=== PATIENT | female | born 1965 | race Caucasian/White ===

== ENCOUNTER 2016-08-29 16:19 | Inpatient (IN) ==
[2016-08-29 16:23] VITALS: BMI 29.4
[2016-08-29] MEDS ORDERED: DUONEB NEB STA (16:28)
[2016-08-29] MEDS ORDERED: ALBUTEROL 0.083% NEB NEB STA (16:33)
[2016-08-29] MEDS ORDERED: ROCEPHIN 1 GM in SODIUM CHLORIDE 100 ML IV STA (16:34)
--- NOTE | 2016-08-29 16:40 | ED.PDOC ---
General ED Provider: Dr. AGUSTIN GIRON JR Chief Complaint: Shortness of Air Stated Complaint: woke up with trouble breathing, coughing up thick white foamy sputum. fever and chills[End] 101.4 102 20 65% 101/70 Time Seen by Physician: 16:41 Mode of Arrival: Wheelchair Information Source: Patient Exam Limitations: No limitations Nursing and Triage Documentation Reviewed and Agree: No Review of Systems - Review Of Systems Constitutional: Reports: Fever, Malaise Eyes: Reports: No symptoms Ears, Nose, Mouth, Throat: Reports: No symptoms Respiratory: Reports: Cough, Short of air, Wheezing GI: Reports: No symptoms : Reports: No symptoms Musculoskeletal: Reports: No symptoms Skin: Reports: No symptoms Neurological: Reports: No symptoms Endocrine: Reports: No symptoms Hematologic/Lymphatic: Reports: No symptoms All Other Systems: Other Past Medical History - Past Medical History Endocrine: Reports: None, Hypothyroid Cardiovascular: Reports: None Respiratory: Reports: COPD Hematological: Reports: None Gastrointestinal: Reports: None Genitourinary: Reports: None Neuro/Psych: Reports: None Musculoskeletal: Reports: None Cancer: Reports: None Last Menstrual Period: none - Surgical History General Surgical History: Reports: Hysterectomy, Other (BREAST REDUCTION ), Unknown - Family History Family History: Reports: Unknown - Social History Smoking Status: Current every day smoker Hx Substance Use: No Alcohol Screening: None Physical Exam - Physical Exam Appearance: Ill-appearing Ill-appearing: Moderate Pain Distress: Moderate Eyes: BEBE ENT: Ears normal, Nose normal, Oropharynx normal Neck: Supple Respiratory: Airway patent, Breath sounds diminished (more diminished on right) , Rhonchi, Wheezes Cardiovascular: RRR, Pulses normal, No rub, No murmur GI/: Soft, Nontender, No masses, Bowel sounds normal, No Organomegaly Musculoskeletal: Normal strength, ROM intact, No edema, No calf tenderness Skin: Warm, Dry, Normal color Neurological: Sensation intact, Motor intact, Reflexes intact, Cranial nerves intact, Alert, Oriented Psychiatric: Anxious Interpretation - Radiology Interpretation Radiology Interpretation By: Radiologist Radiology Results: No acute changes Exam Interpreted: CXR (nonacute stable changes of copd and stable ELLIOTT nodule since 2014) - EKG Interpretation Time of EKG #1: 16:40 Rate: Normal Rhythm: Sinus Ectopy: None ST Segment: Other (lateral Q waves without acute changes, change [id number](q in v2 at that time)) Critical Care Note - Critical Care Note Total Time (mins): 0 Course - Course Hematology/Chemistry: 08/29/16 16:30 08/29/16 16:30 Orders, Labs, Meds: Lab Review 08/29/16 08/29/16 08/29/16 16:27 16:30 16:50 WBC 8.27 RBC 4.99 Hgb 15.6 Hct 47.4 H MCV 95.0 MCH 31.3 H MCHC 32.9 RDW Coeff of Yulia 15.3 H Plt Count 211 Immature Gran % (Auto) 0.4 Neut % (Auto) 75.7 Lymph % (Auto) 12.3 [place] % (Auto) 10.5 H Eos % (Auto) 0.6 Baso % (Auto) 0.5 Immature Gran # (Auto) 0.0 Neut # 6.3 Lymph # 1.0 [place] # 0.9 Eos # 0.1 Baso # 0.0 D-Dimer 0.56 Puncture Site Rrad O2 Saturation 64.0 L ABG pH 7.421 ABG pCO2 54.9 H ABG pO2 33.0 L* ABG HCO3 35.7 H ABG Total CO2 37 H ABG Base Excess 11 H Garcia Test + O2 Delivery Device Oxygen Liter Flow FiO2 % 21.0 Sodium 139 Potassium 4.5 Chloride 95 L Carbon Dioxide 35 H Anion Gap 13.5 BUN 10 Creatinine 0.84 Estimated GFR (MDRD) 72.00 BUN/Creatinine Ratio 11.90 Glucose 88 Lactic Acid 6.7 Calcium 9.5 Total Bilirubin 0.61 AST 21 ALT 17 Alkaline Phosphatase 58 Total Creatine Kinase 79 Troponin I < 0.0100 B-Natriuretic Peptide 37 Total Protein 7.7 Albumin 4.0 Globulin 3.7 Albumin/Globulin Ratio 1.08 Procalcitonin < 0.5 Influenza A (Rapid) Influenza B (Rapid) 08/29/16 08/29/16 17:24 17:30 WBC RBC Hgb Hct MCV MCH MCHC RDW Coeff of Yulia Plt Count Immature Gran % (Auto) Neut % (Auto) Lymph % (Auto) [place] % (Auto) Eos % (Auto) Baso % (Auto) Immature Gran # (Auto) Neut # Lymph # [place] # Eos # Baso # D-Dimer Puncture Site Lbrach O2 Saturation 84.0 L ABG pH 7.409 ABG pCO2 54.8 H ABG pO2 50.0 L* ABG HCO3 34.7 H ABG Total CO2 36 H ABG Base Excess 10 H Garcia Test O2 Delivery Device Nc Oxygen Liter Flow 3.00 FiO2 % Sodium Potassium Chloride Carbon Dioxide Anion Gap BUN Creatinine Estimated GFR (MDRD) BUN/Creatinine Ratio Glucose Lactic Acid Calcium Total Bilirubin AST ALT Alkaline Phosphatase Total Creatine Kinase Troponin I B-Natriuretic Peptide Total Protein Albumin Globulin Albumin/Globulin Ratio Procalcitonin Influenza A (Rapid) Negative Influenza B (Rapid) Negative Orders Category Date Time Status ADMIT PATIENT INPATIENT .TO [facility] (MONITORED BED) ADMISSION 08/29/16 18: 52 Active ABG DRAW REQUEST Stat CARDIO 08/29/16 16:28 Completed ABG DRAW REQUEST Stat CARDIO 08/29/16 17:24 Completed EKG-(ED ONLY) Stat CARDIO 08/29/16 16:27 Completed NEBULIZER TREATMENT Stat CARDIO 08/29/16 16:28 Completed NEBULIZER TREATMENT Stat CARDIO 08/29/16 16:33 Completed NEBULIZER TREATMENT Stat CARDIO 08/29/16 19:03 Ordered OXYGEN Routine CARDIO 08/29/16 18:55 Ordered ACTIVITY .Early Mobilization for VTE Prevention CARE 08/29/16 18:52 Active INTAKE & OUTPUT Q8HR CARE 08/29/16 18:52 Active TELEMETRY MONITORING TELE CARE 08/29/16 18:53 Active VITAL SIGNS Q4HR CARE 08/29/16 18:52 Active REGULAR DIET DIETARY 08/29/16 Breakfast Ordered ED APPLY O2 .ONCE EMERGENCY 08/29/16 16:27 Active ED PROPERTY FIELD ADJUSTER APPLIED .ONCE EMERGENCY 08/29/16 16:27 Active ED IV/MEDIPORT/POWERPORT .ONCE EMERGENCY 08/29/16 16:27 Active O2 [ED APPLY O2] .ONCE EMERGENCY 08/29/16 16:42 Active ABG Stat LAB 08/29/16 16:27 Completed ABG Stat LAB 08/29/16 17:24 Completed B-TYPE NATRIURETIC PEPTIDE Stat LAB 08/29/16 16:30 Completed BLOOD CULTURE Stat LAB 08/29/16 16:50 Received CBC W/ AUTO DIFF DAILY@0600 LAB 08/30/16 06:00 Ordered CBC W/ AUTO DIFF DAILY@0600 LAB 08/31/16 06:00 Ordered CBC W/ AUTO DIFF DAILY@0600 LAB 09/01/16 06:00 Ordered CBC W/ AUTO DIFF DAILY@0600 LAB 09/02/16 06:00 Ordered CBC W/ AUTO DIFF DAILY@0600 LAB 09/03/16 06:00 Ordered CBC W/ AUTO DIFF DAILY@0600 LAB 09/04/16 06:00 Ordered CBC W/ AUTO DIFF DAILY@0600 LAB 09/05/16 06:00 Ordered CBC W/ AUTO DIFF DAILY@0600 LAB 09/06/16 06:00 Ordered CBC W/ AUTO DIFF DAILY@0600 LAB 09/07/16 06:00 Ordered CBC W/ AUTO DIFF DAILY@0600 LAB 09/08/16 06:00 Ordered CBC W/ AUTO DIFF DAILY@0600 LAB 09/09/16 06:00 Ordered CBC W/ AUTO DIFF DAILY@0600 LAB 09/10/16 06:00 Ordered CBC W/ AUTO DIFF DAILY@0600 LAB 09/11/16 06:00 Ordered CBC W/ AUTO DIFF DAILY@0600 LAB 09/12/16 06:00 Ordered CBC W/ AUTO DIFF DAILY@0600 LAB 09/13/16 06:00 Ordered CBC W/ AUTO DIFF DAILY@0600 LAB 09/14/16 06:00 Ordered CBC W/ AUTO DIFF DAILY@0600 LAB 09/15/16 06:00 Ordered CBC W/ AUTO DIFF DAILY@0600 LAB 09/16/16 06:00 Ordered CBC W/ AUTO DIFF DAILY@0600 LAB 09/17/16 06:00 Ordered CBC W/ AUTO DIFF DAILY@0600 LAB 09/18/16 06:00 Ordered CBC W/ AUTO DIFF Stat LAB 08/29/16 16:30 Completed COMPREHENSIVE METABOLIC PANEL DAILY@0600 LAB 08/30/16 06:00 Ordered COMPREHENSIVE METABOLIC PANEL DAILY@0600 LAB 08/31/16 06:00 Ordered COMPREHENSIVE METABOLIC PANEL DAILY@0600 LAB 09/01/16 06:00 Ordered COMPREHENSIVE METABOLIC PANEL DAILY@0600 LAB 09/02/16 06:00 Ordered COMPREHENSIVE METABOLIC PANEL DAILY@0600 LAB 09/03/16 06:00 Ordered COMPREHENSIVE METABOLIC PANEL DAILY@0600 LAB 09/04/16 06:00 Ordered COMPREHENSIVE METABOLIC PANEL DAILY@0600 LAB 09/05/16 06:00 Ordered COMPREHENSIVE METABOLIC PANEL DAILY@0600 LAB 09/06/16 06:00 Ordered COMPREHENSIVE METABOLIC PANEL DAILY@0600 LAB 09/07/16 06:00 Ordered COMPREHENSIVE METABOLIC PANEL DAILY@0600 LAB 09/08/16 06:00 Ordered COMPREHENSIVE METABOLIC PANEL DAILY@0600 LAB 09/09/16 06:00 Ordered COMPREHENSIVE METABOLIC PANEL DAILY@0600 LAB 09/10/16 06:00 Ordered COMPREHENSIVE METABOLIC PANEL DAILY@0600 LAB 09/11/16 06:00 Ordered COMPREHENSIVE METABOLIC PANEL DAILY@0600 LAB 09/12/16 06:00 Ordered COMPREHENSIVE METABOLIC PANEL DAILY@0600 LAB 09/13/16 06:00 Ordered COMPREHENSIVE METABOLIC PANEL DAILY@0600 LAB 09/14/16 06:00 Ordered COMPREHENSIVE METABOLIC PANEL DAILY@0600 LAB 09/15/16 06:00 Ordered COMPREHENSIVE METABOLIC PANEL DAILY@0600 LAB 09/16/16 06:00 Ordered COMPREHENSIVE METABOLIC PANEL DAILY@0600 LAB 09/17/16 06:00 Ordered COMPREHENSIVE METABOLIC PANEL DAILY@0600 LAB 09/18/16 06:00 Ordered COMPREHENSIVE METABOLIC PANEL Stat LAB 08/29/16 16:30 Completed CREATINE KINASE Q8H LAB 08/30/16 01:00 Ordered CREATINE KINASE Q8H LAB 08/30/16 09:00 Ordered CREATINE KINASE Stat LAB 08/29/16 16:30 Completed D-DIMER Stat LAB 08/29/16 16:30 Completed FLU A & B RAPID TEST [RAPID FLU A/B] Stat LAB 08/29/16 17:30 Completed LACTIC ACID Stat LAB 08/29/16 16:50 Completed MOLECULAR GROUP A STREP Stat LAB 08/29/16 17:30 Results PROCALCITONIN Stat LAB 08/29/16 16:30 Completed SPUTUM CULTURE Stat LAB 08/29/16 19:05 Uncollected STREP SCREEN Stat LAB 08/29/16 17:30 Results TROPONIN I Q8H LAB 08/30/16 01:00 Ordered TROPONIN I Q8H LAB 08/30/16 09:00 Ordered TROPONIN I Stat LAB 08/29/16 16:30 Completed 0.9 % Sodium Chloride [Saline Flush] MEDS 08/29/16 16:27 Active 1 syr IVF PRN PRN Acetaminophen [Tylenol] MEDS 08/29/16 17:27 Discontinued 650 mg PO ONCE STA Acetaminophen [Tylenol] MEDS 08/29/16 18:52 Ordered 650 mg PO Q4H PRN Albuterol Sulfate 0.083% Neb [Albuterol 0.083% Neb] MEDS 08/29/16 16:33 Discontinued 1 vial NEB ONCE STA Ceftriaxone Sodium [Rocephin] MEDS 08/29/16 16:41 Discontinued 1 gm .ROUTE .STK-MED ONE Ceftriaxone Sodium [Rocephin] 1 gm MEDS 08/29/16 16:34 Discontinued 0.9 % Sodium Chloride [Sodium Chloride] 100 ml IV ONCE Ceftriaxone Sodium [Rocephin] 1 gm MEDS 08/30/16 09:00 Ordered 0.9 % Sodium Chloride [Sodium Chloride] 50 ml IV DAILY Hydrocodone/Chlorphen Polis [Tussionex] MEDS 08/29/16 17:35 Discontinued 5 ml PO ONCE STA Ipratropium/Albuterol Neb [Duoneb] MEDS 08/29/16 16:28 Discontinued 1 vial NEB ONCE STA Ipratropium/Albuterol Neb [Duoneb] MEDS 08/29/16 22:00 Ordered 1 vial NEB RTQ4H Levaquin MEDS 08/30/16 09:00 Ordered 500 mg PO DAILY Methylprednisolone Sod Succ/Pf [Solu-Medrol 125 mg] MEDS 08/29/16 17:56 Discontinued 125 mg IVP ONCE STA Methylprednisolone Sod Succ/Pf [Solu-Medrol 125 mg] MEDS 08/29/16 21:00 Ordered 125 mg IVP Q8HR RESUSCITATION STATUS Routine OTHERS 08/29/16 18:52 Ordered CHEST, 1V AP ONLY Stat RADS 08/29/16 16:[address] CHEST W/O CONTRAST Stat RADS 08/29/16 18:07 Completed Medications Generic Name Dose Route Start Last Admin Trade Name Freq PRN Reason Stop Dose Admin Acetaminophen 650 mg 08/29/16 18:52 Tylenol PO Q4H PRN Mild Pain Albuterol/Ipratropium 1 vial 08/29/16 22:00 Duoneb NEB RTQ4H YOBANI Guaifenesin/Codeine Phosphate 10 ml 08/29/16 19:08 Robitussin Ac Syrup PO Q4H PRN Cough Ceftriaxone Sodium 1 gm/ 50 mls @ 75 mls/hr 08/30/16 09:00 Sodium Chloride IV DAILY YOBANI Methylprednisolone Sodium Succinate 125 mg 08/29/16 21:00 Solu-Medrol 125 Mg IVP Q8HR YOBANI Nicotine 1 patch 08/30/16 09:00 Nicoderm 21 Mg TD DAILY YOBANI Non-Formulary Medication 500 mg 08/30/16 09:00 Levaquin PO DAILY YOBANI Sodium Chloride 1 syr 08/29/16 16:27 08/29/16 18:06 Saline Flush IVF 1 syr PRN PRN Administration To flush IV Discontinued Medications Generic Name Dose Route Start Last Admin Trade Name [place] PRN Reason Stop Dose Admin Acetaminophen 650 mg 08/29/16 17:27 08/29/16 17:35 Tylenol PO 08/29/16 17:28 650 mg ONCE STA Administration Albuterol Sulfate 1 vial 08/29/16 16:33 08/29/16 16:53 Albuterol 0.083% [facility] 08/29/16 16:34 1 vial ONCE STA Administration Albuterol/Ipratropium 1 vial 08/29/16 16:28 08/29/16 16:49 Duoneb NEB 08/29/16 16:29 1 vial ONCE STA Administration Chlorphenir/Hydrocodone Polistirex 5 ml 08/29/16 17:35 08/29/16 18:58 Tussionex PO 08/29/16 17:36 Not Given ONCE STA Ceftriaxone Sodium 1 gm/ 100 mls @ 100 mls/hr 08/29/16 16:34 08/29/16 16:51 Sodium Chloride IV 08/29/16 17:33 100 mls/hr ONCE STA Administration Methylprednisolone Sodium Succinate 125 mg 08/29/16 17:56 08/29/16 18:06 Solu-Medrol 125 Mg IVP 08/29/16 17:57 125 mg ONCE STA Administration Nicotine 1 patch 08/29/16 19:19 Nicoderm 21 Mg TD 08/29/16 19:20 ONCE STA Vital Signs: Temp Pulse Resp BP Pulse Ox 08/29/16 18:54 99.8 F H 93 H 20 94/60 88 L 08/29/16 16:19 101.4 F H 102 H 20 101/70 65 L Departure - Departure Time of Disposition: 19:21 Disposition: ADMITTED INPATIENT Discharge Problem: COPD exacerbation Condition: Fair Pt referred to PMD for follow-up: Yes Allergies/Adverse Reactions: Allergies No Known Allergies Allergy (Verified 08/29/16 16:51)
[2016-08-29] MEDS ORDERED: ROCEPHIN ONE (16:41)
[2016-08-29 16:42] LABS: BASOPHILS % (AUTO) 0.5 % (0.0-3.0); EOSINOPHILS # (AUTO) 0.1 K/ul (0.0-0.7); EOSINOPHILS % (AUTO) 0.6 % (0.0-7.0); HEMATOCRIT 47.4 % (37.0-47.0); HEMOGLOBIN 15.6 g/dl (12.0-16.0); IMMATURE GRANULOCYTE % (AUTO) 0.4 % (0.0-5.0); LYMPHOCYTES % (AUTO) 12.3 (10.0-50.0); MEAN CORPUSCULAR HEMOGLOBIN 31.3 pg (27.0-31.0); MEAN CORPUSCULAR HGB CONC 32.9 (31.8-35.4); MONOCYTES # (AUTO) 0.9 K/uL (0.4-2.0); MONOCYTES % (AUTO) 10.5 (0-10); NEUTROPHILS # (AUTO) 6.3 K/ul (2.0-6.9); NEUTROPHILS % (AUTO) 75.7; PLATELET COUNT 211 10^3/uL (140-440); RED BLOOD COUNT 4.99 10^6/ul (4.20-5.40); WHITE BLOOD COUNT 8.27 K/ul (4.6-10.2)
--- NOTE | 2016-08-29 16:56 | DI ---
EXAM: Single frontal view of the chest HISTORY: Chest pain. COMPARISON: Chest x-ray 03/17/[address] chest 11/12/2014 FINDINGS: Cardiomediastinal silhouette is unchanged with atherosclerotic disease. There is right ap ical stable lucency consistent with apical bleb with scattered emphysematous disease present. Calci fied nodule in the left upper midlung is unchanged from prior CT. There is no acute consolidation. Right-sided chronic rib fractures are unchanged. IMPRESSION: 1. No acute cardiopulmonary process or consolidation. 2. Stable emphysematous disease most pronounced in the right lung apex with unchanged calcified lef t upper lobe pulmonary nodule stable since 2014.
[2016-08-29 16:58] LABS: ABG BASE EXCESS 11 (-2.0-2.0); ABG HCO3 35.7 (22.0-26.0); ABG PCO2 54.9 mmHg (35-45); ABG PH 7.421 (7.35-7.45); ABG TCO2 37 (22.0-28.0)
[2016-08-29 17:07] LABS: ALANINE AMINOTRANSFERASE 17 U/L (12-78); ALBUMIN/GLOBULIN RATIO 1.08; ALKALINE PHOSPHATASE 58 U/L (42-98); ANION GAP 13.5; ASPARTATE AMINO TRANSFERASE 21 U/L (15-37); BILIRUBIN,TOTAL 0.61 mg/dL (0.00-1.20); BLOOD UREA NITROGEN 10 mg/dL (7-18); CALCIUM 9.5 mg/dL (8.2-10.2); CARBON DIOXIDE 35 mmol/L (21-32); CHLORIDE 95 mmol/L (98-107); CREATINE KINASE 79 U/L; CREATININE 0.84 mg/dL (0.60-1.30); GLUCOSE 88 mg/dL (70-110); POTASSIUM 4.5 mmol/L (3.5-5.10); SODIUM 139 mmol/L (136-145); TOTAL PROTEIN 7.7 g/dL (6.4-8.2)
[2016-08-29] MEDS ORDERED: TYLENOL PO STA (17:27)
[2016-08-29] MEDS ORDERED: TUSSIONEX PO STA (17:35)
[2016-08-29 17:56] LABS: FLU INTERNAL QC INTERNAL QC VALID; RAPID FLU A NEGATIVE (NEGATIVE); RAPID FLU B NEGATIVE (NEGATIVE)
[2016-08-29] MEDS ORDERED: SOLU-MEDROL 125 MG IVP STA (17:56)
[2016-08-29 18:05] LABS: ABG PCO2 54.8 mmHg (35-45); ABG PH 7.409 (7.35-7.45)
[2016-08-29 18:06] LABS: ABG BASE EXCESS 10 (-2.0-2.0); ABG HCO3 34.7 (22.0-26.0); ABG TCO2 36 (22.0-28.0)
--- NOTE | 2016-08-29 18:46 | CT ---
EXAM: CT chest without contrast. HISTORY: Hypoxia. Wheezing. Fever. COMPARISON: Chest radiograph earlier the same day. Chest CT 11/12/2014. TECHNIQUE: Multiple axial images of the chest were obtained without intravenous contrast. Images w ere reformatted in the sagittal and coronal planes. FINDINGS: Nodule extends off the inferior left thyroid lobe measuring 1.8 x 1.9 cm on axial image 1 5. Evaluation for lymphadenopathy is limited due to lack of intravenous contrast. Calcified medias tinal and hilar lymph nodes are present. Heart size is normal. There is a small amount of pericard ial fluid. Atherosclerotic calcifications present. Emphysematous changes in the lung apices are greater on the right with stable nodular densities in t he left upper lobe on axial image 13 and right upper lobe on axial images 21, 22, 26 and 37. Coarse calcification along the left fissure on axial image 38 is stable. Tiny right perifissural nodule o n axial 42 is also stable. No focal consolidation, pleural effusion or pneumothorax identified. Limited images of the upper abdomen demonstrate stable posterior right hepatic lobe and left renal c ysts. Old right-sided rib fractures are present. IMPRESSION: 1. No acute cardiopulmonary process. 2. Stable emphysema with apical scarring. 3. Evidence of prior granulomatous disease.
[2016-08-29] MEDS ORDERED: TYLENOL PO PRN (18:52)
[2016-08-29] MEDS ORDERED: ROBITUSSIN AC SYRUP PO PRN (19:08)
[2016-08-29] MEDS ORDERED: NICODERM 21 MG TD STA (19:19)
[2016-08-29] MEDS: SOLU-MEDROL 125 MG IVP SCH (20:33)
[2016-08-29] MEDS: DUONEB NEB SCH (22:40)
[2016-08-30 01:16] LABS: ALBUMIN 3.5 g/dL (3.4-5.0); ALBUMIN/GLOBULIN RATIO 0.97; ANION GAP 13.3; BILIRUBIN,TOTAL 0.38 mg/dL (0.00-1.20); BUN/CREATININE RATIO 17.44; CALCIUM 9.2 mg/dL (8.2-10.2); CREATININE 0.86 mg/dL (0.60-1.30); POTASSIUM 4.3 mmol/L (3.5-5.10); TOTAL PROTEIN 7.1 g/dL (6.4-8.2)
[2016-08-30 01:25] LABS: BASOPHILS % (AUTO) 0.3 % (0.0-3.0); HEMATOCRIT 45.8 % (37.0-47.0); HEMOGLOBIN 14.8 g/dl (12.0-16.0); IMMATURE GRANULOCYTE % (AUTO) 0.6 % (0.0-5.0); LYMPHOCYTES # (AUTO) 0.4 K/uL (0.60-3.4); MEAN CORPUSCULAR HGB CONC 32.3 (31.8-35.4); MEAN CORPUSCULAR VOLUME 95.8 fl (81.0-99.0); MONOCYTES # (AUTO) 0.1 K/uL (0.4-2.0); MONOCYTES % (AUTO) 2.1 (0-10); NEUTROPHILS # (AUTO) 5.7 K/ul (2.0-6.9); PLATELET COUNT 200 10^3/uL (140-440); RED BLOOD COUNT 4.78 10^6/ul (4.20-5.40); WHITE BLOOD COUNT 6.33 K/ul (4.6-10.2)
[2016-08-30 01:28] LABS: CREATINE KINASE 63 U/L
[2016-08-30] MEDS: DUONEB NEB SCH ×6 (01:51→21:40)
[2016-08-30] MEDS: SOLU-MEDROL 125 MG IVP SCH ×3 (05:35→20:46)
[2016-08-30] MEDS ORDERED: LEVAQUIN 500 MG PO SCH (09:00)
[2016-08-30] MEDS: ROCEPHIN 1 GM in SODIUM CHLORIDE 100 ML IV SCH (09:09)
[2016-08-30] MEDS: LEVAQUIN PO SCH (09:09)
[2016-08-30] MEDS: NICODERM 21 MG TD SCH (09:10)
[2016-08-30 09:45] LABS: CREATINE KINASE 58 U/L
--- NOTE | 2016-08-30 13:33 | PN ---
DATE OF SERVICE: 08/30/16 SUBJECTIVE: The patient is sitting in the bed and not in any distress, still has cough and congestion and some shortness of breath. Mucosa dry. Tearful says that she wants to quit smoking. REVIEW OF SYSTEMS: CONSTITUTIONAL: No fever, no chills. HEENT: Normal. ENDOCRINE: No weight gain, no weight loss. CVS: No angina symptoms. No CHF symptoms. No palpitations. No atypical chest pain for CAD. No shortness of breath. No PND, no orthopnea. RESPIRATORY: No cough, no hemoptysis. GI: No nausea, no vomiting. No abdominal pain. : No hematuria. No polyuria. MUSCULOSKELETAL:. No joint swelling. PSYCHIATRIC: Not anxious. No depression. No suicidal thoughts. No homicidal thoughts. SKIN: Intact. No rash. PHYSICAL EXAMINATION: V/S: Blood pressure 94/60, respiratory rate 20, heart rate 93 and temperature 99.8. HEENT: Normocephalic, atraumatic. Ears, eyes, nose and throat normal. Mucosa dry. NECK: Supple. No JVD, no carotid bruit. No lymphadenopathy. LUNGS: Decreased with basilar crackles with expiratory wheeze. Clear to auscultation. No rales or rhonchi. HEART: S1, S2 normal. No S3. No murmur, gallop or regurgitation. ABDOMEN: Soft, nontender. Bowel sounds active. No rigidity. No rebound or guarding. No CVA tenderness. EXTREMITIES: No clubbing, cyanosis or pedal edema. MUSCULOSKELETAL: No joint swelling. NEUROLOGIC: Awake, alert, oriented times three. No focal deficit. LYMPHATIC: No lymph nodes palpable. SKIN: Intact. LABS: Sodium 139, potassium 4.3, chloride 96, bicarb 34, BUN 15, creatinine 0.86, WBC 6.33, hgb 14.5, hct 45.8 and plt count 200. ASSESSMENT: 1. COPD exacerbation secondary to the acute bronchitis 2. Hypoxemic 3. Respiratory failure 4. Continued nicotine use PLAN: 1. Continue Rocephin 2. Levaquin 3. Will add the Lovenox for the DVT prophylaxis 4. Solu-Medrol 125mg Q 8 hours 5. Duo Nebs Will follow the patient in daily rounds. TIME SPENT: More than 30 minutes MTDD
--- NOTE | 2016-08-30 14:56 | HP ---
DATE OF SERVICE: 08/29/16 CHIEF COMPLAINT: Shortness of breath. HISTORY OF PRESENT ILLNESS: This is a 51-year-old female who was recently at the [facility] for COPD exacerbation and bronchitis. She was put on antibiotics and sent home. The patient went home, was doing well for two days then started smoking. Since yesterday, she is coughing with congestion, getting more green phlegm and short of breath. When she came to the emergency room she was hardly breathing and seen by Dr. Mendez. Saturation was 65 on room air, temperature 101.4, pulse rate 102. ABG's were done which showed pH 7.41, pc02 54.9, p02 33. CT of the chest was done which did not show any acute findings. At that time, the patient is admitted to the hospital D. dimer was negative. BNP REVIEW OF SYSTEMS: CONSTITUTIONAL: No fever, no chills. HEENT: Normal. ENDOCRINE: No weight gain; no weight loss. CVS: No chest pain. No PND, no orthopnea. No shortness of breath. RESPIRATORY: Cough and congestion. No hemoptysis. GI: No nausea, no vomiting. No abdominal pain. No melena. : No hematuria. No polyuria. MUSCULOSKELETAL: No joint swelling. PSYCHIATRIC: Not anxious. No depression. No suicidal thoughts. No homicidal thoughts. SKIN: Dry. PAST MEDICAL HISTORY: 1. History of hypothyroidism 2. COPD PAST SURGICAL HISTORY: 1. S/P hysterectomy date unknown 2. S/P breast reduction date unknown PERSONAL HISTORY: The patient does smoke. No alcohol and no drugs. FAMILY HISTORY: Significant for diabetes mellitus, ovarian cancer, atrial fibrillation. MEDICATIONS: (HOME) 1. Levaquin 2. Prednisone 3. Albuterol ALLERGIES: NKDA LABS: Sodium 139, potassium 4.5, chloride 95, bicarb 35, BUN 10, creatinine 0.84, BNP 37. First set of cardiac enzymes are negative. D.dimer 0.56. White count 8.27, hemoglobin 15.6, hematocrit 47.4, platelet count 211. Serology negative. PHYSICAL EXAMINATION: V/S: Temperature 101.4, pulse 102, respiratory rate 20, oxy saturation 65% HEENT: Atraumatic, normocephalic. No scleral icterus. Mucosa dry. Pallor positive. NECK: Supple. No JVD, no bruit. No lymphadenopathy. No thyromegaly. HEART: S1, S2 normal. No murmur. No cyanosis or clubbing. No ascites. LUNGS: Decreased entry with basilar crackles, expiratory wheeze. ABDOMEN: Soft, nontender. Bowel sounds are active. No CVA tenderness. No rigidity or guarding. EXTREMITIES: No cyanosis, clubbing or pedal edema. MUSCULOSKELETAL: Normal joints, no swelling. NEUROLOGIC: The patient is awake, alert, oriented times three. SKIN: Intact; no open lesions. LYMPHATIC: No lymph nodes palpable. ASSESSMENT: 1. ACUTE RESPIRATORY FAILURE 2. HYPOXEMIC 3. RESPIRATORY FAILURE 4. COPD EXACERBATION SECONDARY TO BRONCHITIS 5. FEVER RULE OUT FLU 6. NICOTINE USE PLAN: 1. Admit the patient to the regular floor 2. CBC, CMP today and daily 3. Cardiac enzymes and troponin 4. Rocephin 1 gm daily 5. Solu-Medrol 125 mg q.8hr 6. Duonebs q.8hr 7. Levaquin. 8. Daily I & O's. 9. Follow with the patient in daily rounds. 10. Counseling for smoking done TIME SPENT: More than 65 minutes today MTDD
[2016-08-30] MEDS: LOVENOX SUBCUT SCH (15:28)
[2016-08-31] MEDS: DUONEB NEB SCH ×6 (01:24→22:40)
[2016-08-31] MEDS: SOLU-MEDROL 125 MG IVP SCH ×3 (05:31→20:09)
[2016-08-31] MEDS: LEVAQUIN PO SCH (05:32)
[2016-08-31 06:09] LABS: BASOPHILS % (AUTO) 0.1 % (0.0-3.0); HEMATOCRIT 45.1 % (37.0-47.0); HEMOGLOBIN 14.7 g/dl (12.0-16.0); IMMATURE GRANULOCYTE % (AUTO) 0.7 % (0.0-5.0); LYMPHOCYTES # (AUTO) 0.8 K/uL (0.60-3.4); LYMPHOCYTES % (AUTO) 7.4 (10.0-50.0); MEAN CORPUSCULAR HEMOGLOBIN 30.8 pg (27.0-31.0); MEAN CORPUSCULAR HGB CONC 32.6 (31.8-35.4); MEAN CORPUSCULAR VOLUME 94.5 fl (81.0-99.0); MONOCYTES # (AUTO) 0.7 K/uL (0.4-2.0); MONOCYTES % (AUTO) 6.5 (0-10); NEUTROPHILS # (AUTO) 9.5 K/ul (2.0-6.9); NEUTROPHILS % (AUTO) 85.3; PLATELET COUNT 212 10^3/uL (140-440); RED BLOOD COUNT 4.77 10^6/ul (4.20-5.40); WHITE BLOOD COUNT 11.15 K/ul (4.6-10.2)
[2016-08-31 06:46] LABS: ALBUMIN 3.4 g/dL (3.4-5.0); ALBUMIN/GLOBULIN RATIO 0.97; ANION GAP 12.3; BILIRUBIN,TOTAL 0.2 mg/dL (0.00-1.20); BUN/CREATININE RATIO 24.13; CALCIUM 9.6 mg/dL (8.2-10.2); CREATININE 0.87 mg/dL (0.60-1.30); POTASSIUM 4.3 mmol/L (3.5-5.10); TOTAL PROTEIN 6.9 g/dL (6.4-8.2)
[2016-08-31] MEDS: NICODERM 21 MG TD SCH (08:50)
[2016-08-31] MEDS: LOVENOX SUBCUT SCH (08:50)
[2016-08-31] MEDS: ROCEPHIN 1 GM in SODIUM CHLORIDE 100 ML IV SCH (08:50)
[2016-09-01] MEDS: DUONEB NEB SCH ×6 (01:25→22:50)
[2016-09-01] MEDS: LEVAQUIN PO SCH (05:40)
[2016-09-01] MEDS: SOLU-MEDROL 125 MG IVP SCH (05:41)
[2016-09-01 05:45] LABS: BASOPHILS % (AUTO) 0.1 % (0.0-3.0); HEMATOCRIT 43.3 % (37.0-47.0); HEMOGLOBIN 14.1 g/dl (12.0-16.0); IMMATURE GRANULOCYTE % (AUTO) 0.9 % (0.0-5.0); LYMPHOCYTES % (AUTO) 6.8 (10.0-50.0); MEAN CORPUSCULAR HEMOGLOBIN 30.7 pg (27.0-31.0); MEAN CORPUSCULAR HGB CONC 32.6 (31.8-35.4); MEAN CORPUSCULAR VOLUME 94.3 fl (81.0-99.0); MONOCYTES # (AUTO) 0.7 K/uL (0.4-2.0); MONOCYTES % (AUTO) 4.4 (0-10); NEUTROPHILS # (AUTO) 13.3 K/ul (2.0-6.9); NEUTROPHILS % (AUTO) 87.8; PLATELET COUNT 225 10^3/uL (140-440); RED BLOOD COUNT 4.59 10^6/ul (4.20-5.40); WHITE BLOOD COUNT 15.09 K/ul (4.6-10.2)
[2016-09-01 06:06] LABS: ALBUMIN 3.2 g/dL (3.4-5.0); ALBUMIN/GLOBULIN RATIO 1.03; ANION GAP 12.4; BILIRUBIN,TOTAL 0.2 mg/dL (0.00-1.20); BUN/CREATININE RATIO 24.39; CALCIUM 9.5 mg/dL (8.2-10.2); CREATININE 0.82 mg/dL (0.60-1.30); POTASSIUM 4.4 mmol/L (3.5-5.10); TOTAL PROTEIN 6.3 g/dL (6.4-8.2)
[2016-09-01] MEDS ORDERED: MEDROL DOSEPAK PO SCH ×2 (08:30→09:00)
[2016-09-01] MEDS: ROCEPHIN 1 GM in SODIUM CHLORIDE 100 ML IV SCH (08:49)
[2016-09-01] MEDS: LOVENOX SUBCUT SCH (08:49)
[2016-09-01] MEDS: NICODERM 21 MG TD SCH (08:50)
[2016-09-01] MEDS: MEDROL DOSEPAK PO SCH ×3 (12:22→20:58)
--- NOTE | 2016-09-01 13:59 | DI ---
Examination: Two radiographic images of the chest. Comparison: 08/29/2016. Reason for study: Follow-up. FINDINGS: Similar appearing nodular density in the left upper lobe. There is flattening of the hem idiaphragms not significantly changed from the prior exam. A diffuse emphysematous disease is noted with bullous changes in the right apex. Impression: 1. No acute cardiopulmonary findings. 2. Similar appearing pulmonary nodule and apical hypodensity consistent with bullous disease. 3. Chronic obstructive pulmonary disease.
--- NOTE | 2016-09-01 14:03 | PCM.PROG ---
Attending Provider: ATTENDING PROVIDER: Dr. NADIA GONSALES DATE OF SERVICE: 09/01/16 SUBJECTIVE: This 51 year old WHITE/ F was hospitalized 08/29/16. The patient was seen and evaluated today. She is feeling better but still gets easily short of breath. Saturations 83 to 85% on room air. The patient is explained in detail about the COPD and the need for oxygen at this time. The patient was upset. I encouraged her that she needs to quit smoking. I offered help to quit and she finally agreed that she is not going to smoke for the rest of her life. She is willing to use oxygen at this time. REVIEW OF SYSTEMS: CONSTITUTIONAL: No fever, no chills. ENDOCRINE: No weight loss or weight gain. HEENT: No sinus drainage, no sore throat. CVS: No angina symptoms. No CHF symptoms. No palpitations. No atypical chest pain for CAD. No shortness of breath. RESPIRATORY: No cough, no hemoptysis. GI: No melena. No abdominal pain. No nausea, no vomiting. : No hematuria. No polyuria. SKIN: No rash. No wounds. MUSCULOSKELETAL: No pain. 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 No headache. No double vision. PSYCHIATRIC: Not anxious; no depression. No suicidal thoughts. No homicidal thoughts. PHYSICAL EXAMINATION: GENERAL: Lying in bed in no distress. VITAL SIGNS: Temperature 98.6 F, Pulse 74, Respiratory Rate 18, BP 92/66, Pulse Ox 96% HEENT: Normocephalic, atraumatic. Mucosa is dry, pallor positive. NECK: No JVP, no carotid bruit. No lymphadenopathy. CARDIAC: S1, S2, no S3. No murmur, gallop or regurgitation. LUNGS: Faint crackles. No wheezing. ABDOMEN: Soft, non-tender. Bowel sounds active. No rigidity, guarding or CVA tenderness. EXTREMITIES: No clubbing, cyanosis or edema. NEUROLOGIC: Awake, alert and oriented x3. LYMPHATIC: No palpable lymph nodes SKIN: Not dry. Intact. MUSCULOSKELETAL: No joint swelling. LAB REVIEW: 09/01/16 05:20 09/01/16 05:20 09/01/16 05:20: WBC 15.09 H, RBC 4.59, Hgb 14.1, Hct 43.3, MCV 94.3, MCH 30.7, MCHC 32.6, RDW Coeff of Yulia 14.7, Plt Count 225, Immature Gran % (Auto) 0.9, Neut % (Auto) 87.8, Lymph % (Auto) 6.8 L, [place] % (Auto) 4.4, Eos % (Auto) 0.0, Baso % (Auto) 0.1, Immature Gran # (Auto) 0.1, Neut # 13.3 H, Lymph # 1.0, [place] # 0.7, Eos # 0.0, Baso # 0.0, Sodium 141, Potassium 4.4, Chloride 99, Carbon Dioxide 34 H, Anion Gap 12.4, BUN 20 H, Creatinine 0.82, Estimated GFR (MDRD) 74.00, BUN/Creatinine Ratio 24.39, Glucose 128 H, Calcium 9.5, Total Bilirubin 0.20, AST 16, ALT 12, Alkaline Phosphatase 44, Total Protein 6.3 L, Albumin 3.2 L, Globulin 3.1, Albumin/Globulin Ratio 1.03 ASSESSMENT: 1. COPD exacerbation secondary to acute bronchitis 2. Hypoxemic, respiratory failure 3. Continued nicotine use; however, the patient has promised that she will quit at this time 4. Status post tonsillectomy 5. Status post hysterectomy PLAN: 1. Continue Keflex, steroid pack. 2. Out of bed to chair. 3. Activity as tolerated. 4. Three step. 5. The patient has agreed to using oxygen at home. EDUCATION: Explained in detail to the patient about the importance of oxygen use and that it is highly inflammable and to avoid smoking while oxygen is in use. The patient voiced understanding and is in agreement. Plan and coordination of the patient's care discussed in the presence of Cryptographic Vulnerability Analyst and nurse. CONDITION: Stable SCRIBED BY: SAM GAONA, Proposal Development Manager scribed while in presence of service performed by Dr. NADIA GONSALES on 09/01/16 ([id number])
[2016-09-02] MEDS: DUONEB NEB SCH ×3 (01:59→10:19)
[2016-09-02] MEDS: LEVAQUIN PO SCH (06:02)
[2016-09-02] MEDS: MEDROL DOSEPAK PO SCH ×2 (06:02→12:31)
[2016-09-02 07:46] LABS: BASOPHILS % (AUTO) 0.1 % (0.0-3.0); HEMATOCRIT 42.6 % (37.0-47.0); HEMOGLOBIN 13.9 g/dl (12.0-16.0); IMMATURE GRANULOCYTE % (AUTO) 0.6 % (0.0-5.0); LYMPHOCYTES # (AUTO) 1.7 K/uL (0.60-3.4); LYMPHOCYTES % (AUTO) 15.2 (10.0-50.0); MEAN CORPUSCULAR HEMOGLOBIN 30.9 pg (27.0-31.0); MEAN CORPUSCULAR HGB CONC 32.6 (31.8-35.4); MEAN CORPUSCULAR VOLUME 94.7 fl (81.0-99.0); MONOCYTES # (AUTO) 0.7 K/uL (0.4-2.0); MONOCYTES % (AUTO) 6.4 (0-10); NEUTROPHILS # (AUTO) 8.7 K/ul (2.0-6.9); NEUTROPHILS % (AUTO) 77.7; PLATELET COUNT 222 10^3/uL (140-440); WHITE BLOOD COUNT 11.23 K/ul (4.6-10.2)
[2016-09-02] MEDS: ROCEPHIN 1 GM in SODIUM CHLORIDE 100 ML IV SCH (08:08)
[2016-09-02] MEDS: LOVENOX SUBCUT SCH ×2 (08:08→08:12)
[2016-09-02] MEDS: NICODERM 21 MG TD SCH (08:09)
[2016-09-02 08:12] LABS: ALBUMIN 3.1 g/dL (3.4-5.0); ALBUMIN/GLOBULIN RATIO 1.03; ANION GAP 11.4; BILIRUBIN,TOTAL 0.28 mg/dL (0.00-1.20); BUN/CREATININE RATIO 22.78; CALCIUM 9.3 mg/dL (8.2-10.2); CREATININE 0.79 mg/dL (0.60-1.30); POTASSIUM 4.4 mmol/L (3.5-5.10); TOTAL PROTEIN 6.1 g/dL (6.4-8.2)
[2016-09-02 10:20] VITALS: BP 109/66; TEMP 97.7
--- NOTE | 2016-09-06 13:55 | PN ---
DATE OF SERVICE: 08/31/16 SUBJECTIVE: The patient was admitted with the COPD exacerbation and bronchitis. She says that she is feeling better still has some coughing and shortness of breath with exertion. Needing oxygen otherwise saturations are dropping to 84%. REVIEW OF SYSTEMS: CONSTITUTIONAL: No fever, no chills. HEENT: Normal. ENDOCRINE: No weight gain, no weight loss. CVS: No angina symptoms. No CHF symptoms. No palpitations. No atypical chest pain for CAD. No shortness of breath. No PND, no orthopnea. RESPIRATORY: No cough, no hemoptysis. GI: No nausea, no vomiting. No abdominal pain. : No hematuria. No polyuria. MUSCULOSKELETAL:. No joint swelling. PSYCHIATRIC: Not anxious. No depression. No suicidal thoughts. No homicidal thoughts. SKIN: Intact. No rash. PHYSICAL EXAMINATION: V/S: Blood pressure 102/60, respiratory rate 16, heart rate 78 and temperature 97.6. HEENT: Normocephalic, atraumatic. Ears, eyes, nose and throat normal. NECK: Supple. No JVD, no carotid bruit. No lymphadenopathy. LUNGS: Decreased with basilar crackles. No rales or rhonchi. HEART: S1, S2 normal. No S3. No murmur, gallop or regurgitation. ABDOMEN: Soft, nontender. Bowel sounds active. No rigidity. No rebound or guarding. No CVA tenderness. EXTREMITIES: No clubbing, cyanosis or pedal edema. MUSCULOSKELETAL: No joint swelling. NEUROLOGIC: Awake, alert, oriented times three. No focal deficit. LYMPHATIC: No lymph nodes palpable. SKIN: Intact. LABS: WBC 11.15, hgb 14.7, hct 45.1, plt count 212, sodium 140, potassium 4.3, chloride 97, bicbar 35, BUN 21, creatinine 0.87 and glucose 136. ASSESSMENT: 1. COPD exacerbation secondary to the bronchitis 2. Nicotine use 3. Hypoxemia 4. Hysterectomy 5. Tonsillectomy PLAN: 1. Continue the Rocephin, Azithromycin, DUO NEBS and Solu-Medrol. TIME SPENT: More than 30 minutes MTDD
--- NOTE | 2016-09-06 14:19 | DS ---
DATE OF SERVICE: 09/02/16 FINAL DIAGNOSIS: 1. COPD exacerbation secondary to the bronchitis 2. Hypoxemia 3. COPD 4. Nicotine use 5. Tonsillectomy 6. Hysterectomy DISCHARGE INSTRUCTIONS: Discharge the patient home. MEDICATIONS AT DISCHARGE: DUO NEBS Medrol Dosepak ALLERGIES: No known allergies NEW PRESCRIPTIONS: Keflex 500mg twice a day for five days Medrol Dosepak finish and complete it Continue Albuterol inhalers and steroids DIET INSTRUCTIONS: As tolerated. ACTIVITY: Get plenty of rest at home. Gradually increase activity as tolerated. SMOKING: Stop smoking DISEASE SPECIFIC EDUCATION: COPD Nicotine use and lung cancer been discussed Antibiotic use and diarrhea been discussed Oxygen use and risk of highly inflammable condition of the oxygen been discussed and verbalized understanding. HOSPITAL COURSE: The patient was admitted from the emergency room for the COPD exacerbation and bronchitis. The patient was recently under the care of me for the same thing, went home and started smoking and started having the shortness of breath and came to the emergency room. The patient was seen by Dr. Mendez initially in the emergency room. The pH was 7.421, pCO2 54.9, pO2 33, D-dimer was negative and BNP was negative. CT scan of the chest was negative with contrast. Repeat ABG pCO2 went up to 50%. The patient was admitted with the COPD exacerbation and bronchitis, started on the steroids and the breathing treatments. Gradually the saturation and the patient started feeling better. Coughing was better. The patient was dropping the saturation with minimal exertion and even at rest her saturation was 83% on the room air. At that time was patient was automatically qualified. I had a lengthy discussion with the patient the use of oxygen and the importance. As the patient is only 51 year old female and the severe lung problem the patient verbalized understanding. The patient was provided for the oxygen script and will on the Albuterol nebulization treatments also. Strictly advised not to smoke and she promised that she will not smoke. Will followup with the [facility] within 5-7 days. TIME SPENT: More than 45 minutes today. MERNA
== END 2016-09-02 13:28 | disposition home or self-care (01) | DRG 190 ==
LOC: ED 16:19 → MEDSURG A 19:08
PROVIDERS: ADMIT Emergency Medicine; ATTEND Emergency Medicine
DX: J44.0 Chronic obstructive pulmonary disease with (acute) lower respiratory infection (principal); J96.91 Respiratory failure, unspecified with hypoxia; J20.9 Acute bronchitis, unspecified; J44.1 Chronic obstructive pulmonary disease with (acute) exacerbation; R50.9 Fever, unspecified; F17.210 Nicotine dependence, cigarettes, uncomplicated
CPT/HCPCS: 36415; 80053; 82550; 82803; 83605; 83880; 84145; 84484; 85025; 85379; 87040; 87651; 87804; 87880; 93005; 93010; 94640; 94761; 96365; 96375; 99223; 99233; 99239; 99284

== ENCOUNTER 2018-07-23 20:56 | Emergency (ER) | payer OTHER ==
[2018-07-23 21:12] VITALS: BP 130/84; TEMP 98.6; BMI 32.2
--- NOTE | 2018-07-23 22:55 | CT ---
EXAM: CT pulmonary angiogram. HISTORY: Hypoxia. PROCEDURE: After the intravenous injection of contrast a CT pulmonary angiogram was performed with c ontiguous axial CT images of the chest with multiplanar reformats, MIP images and 3-D reformats. FINDINGS: Comparison made with CT chest of 08/29/[address] chest of 11/12/2014. There is normal enh ancement of pulmonary arteries with no evidence of pulmonary embolism. The heart is mildly enlarged. The thoracic aorta is within normal limits in diameter. 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 There are calcified mediastinal and hilar lymph nodes and a calc ified granulomas in the left lung. There are severe emphysematous changes throughout both lungs with bulla and bleb formation. There is stable left apical scarring. There are diffuse bilateral ground- glass opacities. There is a stable area of scarring in the lateral right upper lobe measuring 1.6 x 0 [address] of 11/12/2014. There are no acute findings in the visualized portion of the ab domen. There are degenerative changes in the spine. There are multiple old right rib fractures. Impression: No evidence of pulmonary embolism. Bilateral ground-glass opacities which is a nonspecific finding. The differential diagnosis includes infection and edema. Stable 1.8 x 1.8 cm mass in the superior mediastinum. Stable bilateral scarring as described. Chronic obstructive pulmonary disease. Cardiomegaly.
--- NOTE | 2018-07-23 23:04 | ED.PDOC ---
General ED Provider: Dr. ESTEBAN VARGAS-ER Chief Complaint: Extremity Swelling/Pain Stated Complaint: my legs are swelling Time Seen by Physician: 21:00 Mode of Arrival: Walk-In Information Source: Patient Exam Limitations: No limitations Primary Care Provider: SHAQUILLE SOLIZ Nursing and Triage Documentation Reviewed and Agree: Yes Does patient meet sepsis criteria?: No System Inflammatory Response Syndrome: Not Applicable Sepsis Protocol: For patient's 13 years and over: Temp is 96.8 and below OR 101 and greater Pulse >90 BPM Resp >20/minute Acutely Altered Mental Status Are patient's symptoms suggestive of a new infection, such as: -Pneumonia -Skin, Soft Tissue -Endocarditis -UTI -Bone, Joint Infection -Implantable Device -Acute Abdominal Infection -Wound Infection -Meningitis -Blood Stream Catheter Infection -Unknown Respiratory Complaint Exam - Shortness of Air Complaint/Exam Onset/Duration: several days Symptoms Are: Still present Timing: Constant Initial Severity: Mild Current Severity: Moderate Character: Reports: Dyspnea at rest Home Oxygen Use: No Recent Stress Test: No Recent Echo/LV Function: No Respiratory Distress: None Stridor Present: No Tracheal Deviation: No Subcutaneous Emphysema: No Accessory Muscle Use: No Retractions: Not Present Differential Diagnoses: COPD Exacerbation Review of Systems - Review Of Systems Constitutional: Reports: No symptoms Eyes: Reports: No symptoms Ears, Nose, Mouth, Throat: Reports: No symptoms Respiratory: Reports: Short of air Cardiac: Reports: No symptoms GI: Reports: No symptoms : Reports: No symptoms Musculoskeletal: Reports: No symptoms Skin: Reports: No symptoms Neurological: Reports: No symptoms Endocrine: Reports: No symptoms Hematologic/Lymphatic: Reports: No symptoms All Other Systems: Reviewed and Negative Past Medical History - Past Medical History Previously Healthy: No Endocrine: Reports: None, Hypothyroid Cardiovascular: Reports: None Respiratory: Reports: COPD Hematological: Reports: None Gastrointestinal: Reports: None Genitourinary: Reports: None Neuro/Psych: Reports: None Musculoskeletal: Reports: None Cancer: Reports: None Last Menstrual Period: na - Surgical History General Surgical History: Reports: Hysterectomy, Other (BREAST REDUCTION ), Unknown - Family History Family History: Reports: Unknown - Social History Smoking Status: Current every day smoker, Heavy tobacco smoker Hx Substance Use: No Alcohol Screening: Occasionally - Immunizations Tetanus Shot up to Date: No (unknown) Physical Exam - Physical Exam Appearance: Well-appearing, No pain distress, Well-nourished Eyes: BEBE, EOMI, Conjunctiva clear ENT: Ears normal, Nose normal, Oropharynx normal Neck: Supple Respiratory: Airway patent, Breath sounds clear, Breath sounds equal, Respirations nonlabored Cardiovascular: RRR, Pulses normal, No rub, No murmur GI/: Soft, Nontender, No masses, Bowel sounds normal, No Organomegaly Musculoskeletal: Normal strength, ROM intact, No edema, No calf tenderness Skin: Warm, Dry, Normal color Neurological: Sensation intact, Motor intact, Reflexes intact, Cranial nerves intact, Alert, Oriented Psychiatric: Affect appropriate Interpretation - Radiology Interpretation Radiology Interpretation By: Radiologist Radiology Results: Negative Exam Interpreted: CT Scan Critical Care Note - Critical Care Note Total Time (mins): 0 Course - Course Hematology/Chemistry: 07/23/18 21:27 07/23/18 21:27 Orders, Labs, Meds: Lab Review 07/23/18 07/23/18 07/23/18 21:09 21:13 21:27 WBC 10.07 RBC 5.05 Hgb 15.7 Hct 49.8 H MCV 98.6 MCH 31.1 H MCHC 31.5 L RDW Coeff of Yulia 14.6 Plt Count 231 Immature Gran % (Auto) 0.5 Neut % (Auto) 61.1 Lymph % (Auto) 25.5 Charlton % (Auto) 10.2 H Eos % (Auto) 2.2 Baso % (Auto) 0.5 Immature Gran # (Auto) 0.1 Neut # (Auto) 6.2 Lymph # (Auto) 2.6 Charlton # (Auto) 1.0 Eos # (Auto) 0.2 Baso # (Auto) 0.1 Puncture Site Lrad O2 Saturation 80.0 L ABG pH 7.334 L ABG pCO2 70.3 H ABG pO2 49.0 L* ABG HCO3 37.4 H ABG Total CO2 40 H ABG Base Excess 12 H Garcia Test + O2 Delivery Device Bnc Oxygen Liter Flow 2.00 FiO2 % 28.0 Sodium Potassium Chloride Carbon Dioxide Anion Gap BUN Creatinine Estimated GFR (MDRD) BUN/Creatinine Ratio Glucose Calcium Total Bilirubin AST ALT Alkaline Phosphatase Total Creatine Kinase Troponin I NT-Pro-B Natriuret Pep Total Protein Albumin Globulin Albumin/Globulin Ratio TSH Urine Color Yellow Urine Clarity Clear Urine pH 7.0 Ur Specific Ethel 1.015 Urine Protein Negative Urine Glucose (UA) Negative Urine Ketones Negative Urine Blood Negative Urine Nitrite Negative Urine Bilirubin Negative Urine Urobilinogen 0.2 Ur Leukocyte Esterase Negative 07/23/18 07/23/18 07/23/18 21:27 21:27 21:27 WBC RBC Hgb Hct MCV MCH MCHC RDW Coeff of Yulia Plt Count Immature Gran % (Auto) Neut % (Auto) Lymph % (Auto) Charlton % (Auto) Eos % (Auto) Baso % (Auto) Immature Gran # (Auto) Neut # (Auto) Lymph # (Auto) Charlton # (Auto) Eos # (Auto) Baso # (Auto) Puncture Site O2 Saturation ABG pH ABG pCO2 ABG pO2 ABG HCO3 ABG Total CO2 ABG Base Excess Garcia Test O2 Delivery Device Oxygen Liter Flow FiO2 % Sodium 139.7 Potassium 4.04 Chloride 95.6 L Carbon Dioxide 40.6 H* Anion Gap 7.54 BUN 11.0 Creatinine 0.96 Estimated GFR (MDRD) 61.00 BUN/Creatinine Ratio 11.45 Glucose 77.0 Calcium 9.19 Total Bilirubin 0.52 AST 27.2 ALT 23.9 Alkaline Phosphatase 62.6 Total Creatine Kinase 59.5 Troponin I < 0.012 NT-Pro-B Natriuret Pep 477.000 H Total Protein 7.35 Albumin 4.16 Globulin 3.19 Albumin/Globulin Ratio 1.30 TSH 21.400 H Urine Color Urine Clarity Urine pH Ur Specific Ethel Urine Protein Urine Glucose (UA) Urine Ketones Urine Blood Urine Nitrite Urine Bilirubin Urine Urobilinogen Ur Leukocyte Esterase Orders Category Date Time Status ABG DRAW REQUEST Stat CARDIO 07/23/18 21:09 Completed EKG-(ED ONLY) Stat CARDIO 07/23/18 21:09 Completed NPO REMINDER: IMAGING ONCE CARE 07/23/18 21:11 Active ED IV/MEDIPORT/POWERPORT .ONCE EMERGENCY 07/23/18 21:10 Active ABG Stat LAB 07/23/18 21:09 Completed CBC W/ AUTO DIFF Stat LAB 07/23/18 21:27 Completed COMPREHENSIVE METABOLIC PANEL Stat LAB 07/23/18 21:27 Completed CREATINE KINASE Stat LAB 07/23/18 21:27 Completed NT-PROBNP Stat LAB 07/23/18 21:27 Completed TROPONIN I Stat LAB 07/23/18 21:27 Completed TSH [THYROID STIMULATING HORMONE] Stat LAB 07/23/18 21:27 Completed URINALYSIS C & S IF INDICATED Stat LAB 07/23/18 21:13 Completed 0.9 % Sodium Chloride [Saline Flush] MEDS 07/23/18 21:10 Ordered 1 syr IVF PRN PRN CT CHEST PE PROTOCOL Stat RADS 07/23/18 21:10 Completed Medications Generic Name Dose Route Start Last Admin Trade Name Freq PRN Reason Stop Dose Admin Sodium Chloride 1 syr 07/23/18 21:10 Saline Flush IVF PRN PRN To flush IV Vital Signs: Temp Pulse Resp BP Pulse Ox 07/23/18 20:56 98.6 F 103 H 18 130/84 65 L Departure - Departure Time of Disposition: 23:03 Disposition: TSF SHORT-TRM HOSP Discharge Problem: Acute respiratory failure Qualifiers: Respiratory failure complication: hypoxia Qualified Code(s): J96.01 - Acute respiratory failure with hypoxia Instructions: Hypoxia (ED) Condition: Fair Pt referred to PMD for follow-up: Yes IPMP verified?: No Allergies/Adverse Reactions: Allergies No Known Allergies Allergy (Verified 08/29/16 16:51) Home Medications: Ambulatory Orders Budesonide/Formoterol Fumarate [Symbicort 160-4.5 Mcg Inhaler] 2 puff IH BID PRN 07/23/18 Transfer Form Completed: Yes Disposition Discussed With: Patient, Family
== END 2018-07-23 23:50 | disposition short-term general hospital (02) ==
LOC: ED 20:56
DX: J96.01 Acute respiratory failure with hypoxia (principal); E03.9 Hypothyroidism, unspecified; J44.9 Chronic obstructive pulmonary disease, unspecified; F17.210 Nicotine dependence, cigarettes, uncomplicated
CPT/HCPCS: 36415; 80053; 81001; 82550; 82803; 83880; 84443; 84484; 85025; 93005; 93010; 99285